=== PATIENT | female | born 1980 | race Caucasian/White ===

== ENCOUNTER → 2022-04-09 | Outpatient (CLI) | payer OTHER | LOC: MAMO 02-20 10:00 | DX: N64.52 Nipple discharge (principal); N63.0 Unspecified lump in unspecified breast | CPT/HCPCS: 76641; 77066; G0279 ==

== ENCOUNTER → 2022-04-23 | Outpatient (CLI) | payer OTHER | END | disposition home or self-care (01) | LOC: US 07:36 | DX: C50.911 Malignant neoplasm of unspecified site of right female breast (principal); C50.912 Malignant neoplasm of unspecified site of left female breast; C79.81 Secondary malignant neoplasm of breast | CPT/HCPCS: 77065 ==